=== PATIENT | male | born 1995 | race Asian ===

== ENCOUNTER 2018-12-22 14:57 | Observation (INO) ==
[2018-12-22 15:43] LABS: Basophils # (auto) 0.01 K/uL (0-0.2); Basophils % (auto) 0.2 %; Eosinophils # (auto) 0.05 K/uL (0-0.5); Hematocrit (blood only) 45.8 % (42-52); Hemoglobin 16.3 g/dL (14.0-18.0); Lymphocytes # (auto) 1.52 K/uL (1.2-3.4); Lymphocytes % (auto) 31.1 %; Mean Corpuscular Hgb Conc 35.6 g/dL (32-36); Mean Corpuscular Volume 86.3 fL (80-100); Mean Platelet Volume 9.9 fL (7.4-10.4); Monocytes # (auto) 0.26 K/uL (0.11-0.59); Monocytes % (auto) 5.3 %; Neutrophils # (auto) 3.05 K/uL (1.4-6.5); Neutrophils % (auto) 62.4 %; Platelet Count 164 K/uL (130-400); RDW Standard Deviation 41.3 fL (36.4-46.3); Red Blood Count 5.31 M/uL (4.7-6.1); White Blood Count 4.89 K/uL (4.8-10.8)
[2018-12-22 15:47] LABS: Appearance Urine Clear (Clear); Bilirubin Urine Negative (Negative); Blood Urine Negative (Negative); Color Urine Yellow; Glucose Urine UA Negative (Negative); Ketones Urine Negative (Negative); Leukocyte Esterase Urine Negative (Negative); Nitrite Urine Negative (Negative); Protein Urine Negative (Negative); Specific Gravity Urine 1.042 (1.000-1.030); Urobilinogen Urine Negative (Negative)
[2018-12-22 16:04] LABS: Alanine Aminotransferase 29 U/L (12-78); Albumin Globulin Ratio 1.4 (0.9-2); Albumin Level 4.7 gm/dl (3.4-5.0); Alkaline Phosphatase 66 U/L (45-117); Aspartate Aminotransferase 22 U/L (15-37); BUN Creatinine Ratio 8.9 (10-20); Bilirubin,Total 2.1 mg/dl (0.2-1); Blood Urea Nitrogen 9 mg/dl (7-18); Calcium 8.9 mg/dl (8.5-10.1); Carbon Dioxide 27 mmol/L (21-32); Chloride 103 mmol/L (98-107); Est GFR (African American) 130.4; Est GFR (Non-African American) 112.5; Globulin 3.3 gm/dl (2.5-4.0); Glucose 89 mg/dl (70-99); Potassium 3.6 mmol/L (3.5-5.1); Sodium 138 mmol/L (136-145)
--- NOTE | 2018-12-22 17:06 | Surgery Consultation ---
Date of Consultation December 22, 2018 Assessment & Plan (1) Appendicitis: pt is a 23 year old male who presents to ER with abdominal pain 3 weesk ago, pt had CT scan dx acute appendicitis, IMP: acute appendicitis Plan, I recommend to do laparoscopic appendectomy, possible open, D/W benefits, risks and alternatives of the surgery, the risks - infection, bleeding, injury bowel, abscess, negative for appendicitis, . pt understood, he agrees with the surgery, I answered all questions, History of Present Illness History of Present Illness CC: abdominal pain, HPI: pt is a 23 year old male who present to ER with acute abdominal pain with nausea and vomiting 3 weeks ago, the pain is last about 8 hours, then the abdominal pain is gone, the pain is located at LLQ area, pt is still have some diarrhea with loose stool an anoxia , pt saw GI DR. Souza 2 days ago, pt was schedule colonoscopy next week, pt had CT scan today which was diagnosed acute appendicitis. pt denies fever, no significant abdominal pain now, no dysuria. otherwise pt is health in the past. Allergies Allergy/AdvReac Type Severity Reaction Status Date / Time No Known Allergies Allergy Verified 12/20/18 14:47 Home Medications Home Medications Medication Instructions Recorded Confirmed Type famotidine 20 mg PO BID 12/20/18 12/20/18 History inulin [Fiber Gummies] 2 g PO DAILY 12/20/18 12/20/18 History sucralfate 1 g PO TID 12/20/18 12/20/18 History Patient History Medical History Acid reflux Allergic (intrinsic) eczema Chronic diarrhea Surgical History No history of previous surgery Family History Father No problems noted. Mother No problems noted. Grandmother (Paternal) Family history of diabetes mellitus Social History Preferred Language: Malay Communication Ability: Effective Automatic Winder Operator Required: No Beliefs That Will Affect Care: None Current Living Situation: Significant Other Current Living Situation Comment: LIVES W/ FRIEND current occupation: student at [employer] Feels Safe at Home: Yes Smoking Status: Never smoker Second Hand Exposure: No ; Hx Alcohol Use: No Hx Substance Use: No Review of Systems Review of Systems: All systems reviewed & are unremarkable except as noted in HPI & below Constitutional: as per Subjective / HPI Ear, Nose, Mouth, Throat: as per Subjective / HPI Respiratory: as per Subjective / HPI Cardiovascular: as per Subjective / HPI Gastrointestinal: as per Subjective / HPI, + abdominal pain and + nausea Neurologic: as per Subjective / HPI Psychiatric: as per Subjective / HPI Endocrine: as per Subjective / HPI Hematologic / Lymphatic: as per Subjective / HPI Physical Exam Constitutional: WD/WN, vitals as above well developed and well nourished ENMT: external ear and nose normal, oropharynx normal Neck: trachea midline, no thyromegaly Respiratory: normal respiratory effort, lungs clear to auscultation normal respiratory effort Cardiovascular: RRR, no murmur, no edema Rate/Rhythm: regular rate and regular rhythm Heart Sounds: normal S1 and normal S2 Gastrointestinal (Abdomen): normal bowel sounds, soft, nontender, no hepatosplenomegaly no significant tenderness, no distend, BS+ Musculoskeletal: no cyanosis or clubbing, extremities motor strength 5/5 Neurologic: patellar DTR's 2+ bilat, sensation intact Psychiatric: A+Ox3, euthymic affect Orientation: alert and oriented x 3 Results & Data Vital Signs (Past 12 Hours) Vital Signs Temp Pulse Pulse Resp BP BP Pulse Ox 12/22/18 16:50 79 20 115/77 98 12/22/18 15:10 36.8 C 97 H 20 129/78 95 Laboratory Results Abnormal lab results 12/22/18 12/22/18 Range/Units 15:32 15:33 BUN/Creatinine Ratio 8.9 L (10-20) Total Bilirubin 2.1 H (0.2-1) mg/dl Lipase 69 L (73-393) U/L Ur Specific [place] 1.042 H (1.000-1.030) Diagnostic Findings CT abd pelvis oral and IV con CLINICAL HISTORY: 23 years-old Male presenting with ABD PAIN. TECHNIQUE: Multidetector CT of the abdomen and pelvis was performed after the administration of oral and intravenous contrast. IV contrast: 94 mL of Optiray 320. One or more dose lowering techniques were used consistent with the principles of ALARA (as low as reasonably achievable), including automatic exposure control, mA or kV adjustment to individual patient size, and/or use of iterative reconstruction. COMPARISON: None. CT DOSE (mGy.cm): The estimated cumulative dose is 300.80 mGycm. FINDINGS: Manager Maritime topogram: Unremarkable. Lung bases: Normal heart size. No pericardial or pleural effusion. No focal infiltrate or nodule at the lung bases. Liver: Normal morphology. No liver lesion. Patent hepatic vasculature. Biliary: No intrahepatic or extrahepatic biliary ductal dilatation. Normal gallbladder. Pancreas: Normal. Spleen: Normal. Adrenal glands: Normal. Kidneys and ureters: Normal. No hydronephrosis. Bladder: Normal. Pelvic organs: Prostate and seminal vesicles normal. Bowel: Distended and unopacified appendix with mucosal hyperemia. The appendiceal diameter measures up to 10 mm. No periappendiceal fat infiltration or adjacent fluid or fluid collection. No bowel obstruction. Peritoneal cavity: No free fluid or intraperitoneal gas. Lymph nodes: No enlarged lymph nodes in the abdomen or pelvis. Vasculature: Aorta and IVC patent and normal in caliber. Abdominal wall: Normal. Musculoskeletal: Normal. IMPRESSION: 1. Acute uncomplicated appendicitis. Surgical consultation is necessary. The report will be called/faxed according to standard departmental protocol for a critical finding.
--- NOTE | 2018-12-22 17:07 | Anesthesiology Consultation ---
Date of Service December 22, 2018 Assessment & Plan (1) Encounter for pre-operative examination: Chart Review Chart Review: Acceptable Risk for Surgery and Patient NOT seen in Pre Admission Testing Consults Requested none ASA ASA2 Proposed Anesthesia Anesthesia Type: General Risk / Benefits Reviewed With: PT / POA / Parent / Guardian, Accepts Plan and Informed Consent Obtained History Surgery Operation Date: 12/22/18 17:30 Proposed Procedures p Laparoscopic Appendectomy - Iban Sales MD Height/Weight Height: 6 ft 0.44 in Weight: 61.9 kg Allergies Allergy/AdvReac Type Severity Reaction Status Date / Time No Known Allergies Allergy Verified 12/22/18 17:26 Medications Home Medications Medication Instructions Recorded Confirmed Last Taken famotidine 20 mg PO BID 12/20/18 12/22/18 Unknown inulin [Fiber Gummies] 2 g PO DAILY 12/20/18 12/22/18 Unknown sucralfate 1 g PO TID 12/20/18 12/22/18 Unknown NPO Date Last Intake of Fluids: 12/22/18 Time Last Intake of Fluids: 14:00 Date Last Intake of Solids: 12/22/18 Time Last Intake of Solids: 10:00 Past Medical History Medical History Appendicitis (Acute) Acid reflux Allergic (intrinsic) eczema Chronic diarrhea Exercise / Class Metabolic Activity II 4-5 Yardwork/Stairs/Walk up hill Past Family History Family History Father No problems noted. Mother No problems noted. Grandmother (Paternal) Family history of diabetes mellitus Past Surgical History Surgical History No history of previous surgery Past Anesthesia History No Family Hx of Anesthesia Complications no prior surgical history History of PONV Hx of Motion Sickness Social History Smoking Status: Never smoker Hx Alcohol Use: No Hx Substance Use: No substance use type: does not use Review of Systems Negative for chest pain or shortness of breath. Patient denies active symptoms of GERD. Physical Exam Vital Signs Last Vital Signs Temp 36.8 C 12/22/18 15:10 Pulse 79 12/22/18 16:50 Resp 20 12/22/18 16:50 BP 115/77 12/22/18 16:50 Pulse Ox 98 12/22/18 16:50 Constitutional not obese ENMT Mouth: no TMJ abnormality and oral opening not small Thyromental Distance: > or= 3.5 Finger Breadths Mallampati Class: II Neck normal visual inspection; neck extension not limited Respiratory normal respiratory effort Auscultation: lungs clear to auscultation bilaterally Cardiovascular Rate/Rhythm: regular rate and regular rhythm Heart Sounds: + murmur Neurologic moves all extremities Motor/Sensory: no sensory deficit Psychiatric Orientation: alert and oriented x 3 Testing Laboratory Results 12/22/18 15:32 12/22/18 15:32 Urine Color Yellow 12/22/18 15:33 Urine Appearance Clear (Clear) 12/22/18 15:33 Urine pH 7.0 (4.5-7.5) 12/22/18 15:33 Ur Specific [place] 1.042 (1.000-1.030) H 12/22/18 15:33 Urine Protein Negative (Negative) 12/22/18 15:33 Urine Glucose (UA) Negative (Negative) 12/22/18 15:33 Urine Ketones Negative (Negative) 12/22/18 15:33 Urine Nitrite Negative (Negative) 12/22/18 15:33 Ur Leukocyte Esterase Negative (Negative) 12/22/18 15:33
[2018-12-22] MEDS ORDERED: cefOXitin 2,000 MG/60 ML BAG IV STA ×2 (17:13→18:37)
[2018-12-22] MEDS ORDERED: LIDOCAINE HCL 2% 2 ML VIAL/AMP(20MG/ML) INFIL ONE (17:23)
[2018-12-22] MEDS ORDERED: ONDANSETRON INJ 2 MG/ML 2 ML VIAL ONE (17:23)
[2018-12-22] MEDS ORDERED: ROCURONIUM BROMIDE 10 MG/ML 5 ML VIAL ONE (17:23)
[2018-12-22] MEDS ORDERED: PROPOFOL IV EMULSION 10 MG/ML 20 ML VIAL IV ONE (17:23)
[2018-12-22] MEDS ORDERED: SUCCINYLCHOLINE CHLORIDE 20 MG/ML 10 ML VIAL ONE (17:23)
[2018-12-22] MEDS ORDERED: DEXAMETHASONE SOD INJ 4 MG/ML VIAL ONE (17:23)
[2018-12-22] MEDS ORDERED: BUPIVACAINE 0.5 % 5 MG/1 ML MPF 30ML VIAL ONE (17:47)
[2018-12-22] MEDS ORDERED: LIDOCAINE HCL 1% 20 ML VIAL ONE (17:48)
[2018-12-22] MEDS ORDERED: BACITRACIN OINT 15 GM TUBE ONE (17:48)
[2018-12-22] MEDS ORDERED: fentaNYL citrate 100 MCG/2 ML VIAL ONE ×2 (17:50→18:30)
[2018-12-22] MEDS ORDERED: MIDAZOLAM HCL 1 MG/ML 2ML VIAL ONE (17:50)
--- NOTE | 2018-12-22 17:54 | Emergency Department Note ---
Entered by Leida Hahn acting as a scribe for History of Present Illness General Chief complaint: Abnormal Labs/Diagnostic Testing Stated complaint: ABD PAIN,ABNORMAL CT Source: patient Mode of arrival: ambulatory Limitations: no limitations History of Present Illness Onset (ago): week(s) 3 Location: abdomen (LLQ) Radiation: non-radiation Pain Consistency: + now resolved Maximum Pain Intensity: 0 Relieved By: + none Exacerbated By: + none Associated symptoms: + loss of appetite Treatments prior to arrival: none The patient is a 23 year old male w/ a limited PMHx who presents to the ED w/ CC of RLQ abdominal pain. He states he experienced abdominal pain approximately 3 weeks ago, but it went away shortly after developing. He reports last week he experienced a loss of appetite, so he saw his doctor, who referred him to the ED for a CT scan. His last BM was this morning and normal. He has never undergone abdominal surgery in the past. He notes that now he has no pain but still has a decreased appetite. No chest pain shortness of breath nausea vomiting or diarrhea. No dysuria urgency or frequency. Home Medications Home Medications Medication Instructions Recorded Confirmed Type famotidine 20 mg PO BID 12/20/18 12/22/18 History inulin [Fiber Gummies] 2 g PO DAILY 12/20/18 12/22/18 History sucralfate 1 g PO TID 12/20/18 12/22/18 History Allergies Allergy/AdvReac Type Severity Reaction Status Date / Time No Known Allergies Allergy Verified 12/22/18 17:26 Past Med/Surg History Medical History Acid reflux Allergic (intrinsic) eczema Chronic diarrhea Surgical History No history of previous surgery Family History Father No problems noted. Mother No problems noted. Grandmother (Paternal) Family history of diabetes mellitus Social History Preferred Language: Indian Communication Ability: Effective Answerer Required: No Beliefs That Will Affect Care: None Current Living Situation: Significant Other Current Living Situation Comment: LIVES W/ FRIEND current occupation: student at [employer] Feels Safe at Home: Yes Smoking Status: Never smoker Second Hand Exposure: No ; Hx Alcohol Use: No Hx Substance Use: No Review of Systems See HPI for pertinent positives & negatives. and A total of 10 systems reviewed and were otherwise negative Physical Exam Vital Signs Vital Signs - 24 hr 12/22/18 15:10 12/22/18 16:50 Temperature 36.8 C Temperature Source Oral Sepsis Recent Fever Within 48 Hours No Sepsis Action Taken by Nursing No Action Required Pulse Rate 97 H Pulse Rate [Right Finger] 79 Respiratory Rate 20 20 Respiratory Effort / Characteristics Non-Labored Respiratory Depth Normal Blood Pressure 129/78 Blood Pressure [Right Arm] 115/77 Blood Pressure Mean 95 Blood Pressure Mean [Right Arm] 89 Pulse Oximetry 95 98 Oxygen Delivery Method Room Air GENERAL: Patient is sitting up in bed, alert, skinny, no distress, non-toxic EYE EXAM: normal conjunctiva OROPHARYNX: no exudate, no erythema, lips, buccal mucosa, and tongue normal and mucous membranes are moist NECK: supple, no nuchal rigidity, no adenopathy, non-tender LUNGS: Clear to auscultation. Normal chest wall mechanics HEART: no murmurs, S1 normal and S2 normal ABDOMEN: abdomen soft, non-tender, normo-active bowel sounds, no masses, no rebound or guarding. BACK: Back is symmetrical on inspection and there is no deformity, no midline tenderness, no CVA tenderness. SKIN: no rashes and no bruising UPPER EXTREMITIES: upper extremities are grossly normal. LOWER EXTREMITIES: No pitting edema. NEURO EXAM: Normal sensorium, cranial nerves II-XII grossly intact, normal speech, no gross weakness of arms, no gross weakness of legs. Gross sensation intact. Course ED COURSE: Vital signs were reviewed and showed the patient is tachycardic. The patients medical record was reviewed The above diagnostic studies were performed and reviewed. ED treatments and interventions as stated above. 1516: The patient was evaluated in room B11. A complete history and physical examination was performed. 1525: I discussed the patients case with DOROTHEA Arriola, General Surgery. The patient will be further evaluated. He is agreeable with the treatment plan. 1647: Dr. Sales, General Surgery, informed me the patient will be further evaluated by surgery. Based on the patients age, coexisting illnesses, exam and lab findings the decision to treat as an inpatient was made. The patient remained stable while under my care. The patient will be evaluated for further management. Medical Decision Making Differential Diagnosis Differential diagnoses includes but is not limited to gastritis, peptic ulcer disease, GERD, gallbladder disease, pancreatitis, small bowel obstruction, acute coronary syndrome, pericarditis, ischemic bowel, irritable bowel disease, irritable bowel syndrome, appendicitis, diverticulitis, malignancy, hernia, urinary tract infection, torsion, perforation, trauma, infectious. Medical Records Attestation: I reviewed the patient's medical records. Home Medications Current Medication List: was personally reviewed by me Laboratory Data Attestation: I reviewed the patient's lab results. Result diagrams: 12/22/18 15:32 12/22/18 15:32 Lab Results 12/22/18 12/22/18 12/22/18 Range/Units 15:32 15:32 15:33 WBC 4.89 (4.8-10.8) K/uL RBC 5.31 (4.7-6.1) M/uL Hgb 16.3 (14.0-18.0) g/dL Hct 45.8 (42-52) % MCV 86.3 (80-100) fL MCH 30.7 (25-34) pg MCHC 35.6 (32-36) g/dL RDW Std Deviation 41.3 (36.4-46.3) fL RDW Coeff of Mark 13.0 (11.5-14.5) % Plt Count 164 (130-400) K/uL MPV 9.9 (7.4-10.4) fL Immature Gran % (Auto) 0.0 % Neut % (Auto) 62.4 % Lymph % (Auto) 31.1 % [place] % (Auto) 5.3 % Eos % (Auto) 1.0 % Baso % (Auto) 0.2 % Immature Gran # (Auto) 0.00 (0.00-0.02) K/uL Neut # (Auto) 3.05 (1.4-6.5) K/uL Lymph # (Auto) 1.52 (1.2-3.4) K/uL [place] # (Auto) 0.26 (0.11-0.59) K/uL Eos # (Auto) 0.05 (0-0.5) K/uL Baso # (Auto) 0.01 (0-0.2) K/uL Sodium 138 (136-145) mmol/L Potassium 3.6 (3.5-5.1) mmol/L Chloride 103 (98-107) mmol/L Carbon Dioxide 27 (21-32) mmol/L Anion Gap 8.0 (3-11) BUN 9 (7-18) mg/dl Creatinine 0.96 (0.6-1.4) mg/dl Est Cr Clr Drug Dosing Not Reportable Est GFR ( Amer) 130.4 Est GFR (Non-Af Amer) 112.5 BUN/Creatinine Ratio 8.9 L (10-20) Glucose 89 (70-99) mg/dl Calcium 8.9 (8.5-10.1) mg/dl Total Bilirubin 2.1 H (0.2-1) mg/dl AST 22 (15-37) U/L ALT 29 (12-78) U/L Alkaline Phosphatase 66 (45-117) U/L Total Protein 8.0 (6.4-8.2) gm/dl Albumin 4.7 (3.4-5.0) gm/dl Globulin 3.3 (2.5-4.0) gm/dl Albumin/Globulin Ratio 1.4 (0.9-2) Lipase 69 L (73-393) U/L Specimen Hemolysis Urine Color Yellow Urine Appearance Clear (Clear) Urine pH 7.0 (4.5-7.5) Ur Specific [place] 1.042 H (1.000-1.030) Urine Protein Negative (Negative) Urine Glucose (UA) Negative (Negative) Urine Ketones Negative (Negative) Urine Blood Negative (Negative) Urine Nitrite Negative (Negative) Urine Bilirubin Negative (Negative) Urine Urobilinogen Negative (Negative) Ur Leukocyte Esterase Negative (Negative) Blood Pressure Blood Pressure Findings: Normal blood pressure Blood Pressure Disposition: did not require urgent referral MDM Narrative Patient is a 23-year-old male who was sent in by PCP following having a CT done on as he had abdominal pain about 2 to 3 weeks ago and has not wanted to eat since then. CT showed acute appendicitis. Vitals are stable. Patient has a fairly benign exam. Labs were obtained and shows no significant leukocytosis or anemia. BMP along with LFTs bilirubin lipase was unremarkable. UA was negative. CT read was reviewed. Discussed with general surgery and update the patient at bedside. Patient will go to the OR for acute appendicitis for evaluation by general surgery. Impression & Plan Appendicitis, Elevated bilirubin Discharge Plan Visit Data Chief Complaint: Abnormal Labs/Diagnostic Testing Stated Complaint: ABD PAIN,ABNORMAL CT ED Provider: Jose Daniel Porter Discharge Problem: Appendicitis, Elevated bilirubin Patient Disposition: Being Evaluated by Surgeon Forms Stand Alone Forms: My [facility] Prescriptions Prescriptions: No Action sucralfate 1 gram Tablet 1 g PO TID RF: 0 famotidine 20 mg Tablet 20 mg PO BID RF: 0 Fiber Gummies 2 gram Tablet,Chewable 2 g PO DAILY RF: 0 Referrals Referrals: Yanet Mcgee MD [Primary Care Provider] - The scribe's documentation has been prepared under my direction and personally reviewed by me in its entirety. I confirm that the note above accurately reflects all work, treatment, procedures, and medical decision making performed by me.
[2018-12-22] MEDS ORDERED: HYDROmorphone INJ 1 MG/ML SYRINGE IV PRN (18:09)
[2018-12-22] MEDS ORDERED: PROMETHAZINE HCL 12.5 MG in SODIUM CHLORIDE 0.9% 50 ML IV PRN (18:09)
[2018-12-22] MEDS ORDERED: fentaNYL citrate 100 MCG/2 ML VIAL IV PRN (18:09)
[2018-12-22] MEDS ORDERED: ONDANSETRON INJ 2 MG/ML 2 ML VIAL IV PRN (18:09)
[2018-12-22] MEDS ORDERED: ePHEDrine sulfate 50 MG/ML AMP IV PRN (18:09)
[2018-12-22] MEDS ORDERED: ATROPINE SULFATE 0.1 MG/ML 10ML SYR IV PRN (18:09)
[2018-12-22] MEDS ORDERED: HYDROmorphone INJ 0.5 MG/0.5 ML SYR IV PRN (18:17)
[2018-12-22] MEDS ORDERED: GLYCOPYRROLATE 0.2 MG/ML VIAL ONE (18:54)
[2018-12-22] MEDS ORDERED: NEOSTIGMINE METHYLSULFATE 5 MG/5 ML SYR ONE (18:54)
[2018-12-22] MEDS ORDERED: KETOROLAC 30 MG/ML VIAL ONE (18:54)
--- NOTE | 2018-12-22 19:01 | Post Operative Brief Note ---
Immediate Post Op Note v1 Date of Surgery December 22, 2018 Pre & Post Diagnosis Operation Date: 12/22/18 17:30 Pre-Op Diagnosis: Acute Appendicitis Post-Op Diagnosis: Acute Appendicitis Procedure Operation Date: 12/22/18 17:30 Actual Procedures p Laparoscopic Appendectomy(Not Applicable) - Iban Sales MD Surgeon Iban Sales MD Liability Claims Adjuster surgical pathologist Estimated Blood Loss 5 Findings Consistent with Post-Op Diagnosis Fluids 700ml Specimens appendix Anesthesia Type General Complications none Disposition Accompanied Patient To Recovery: Yes Disposition: Recovery Room Overlapping Procedure I was immediately available: during the entire case.
[2018-12-22] MEDS ORDERED: MEPERIDINE HCL 25 MG/ML CARP IV PRN (19:35)
[2018-12-22] MEDS ORDERED: MEPERIDINE HCL 25 MG/ML CARP ONE (19:40)
--- NOTE | 2018-12-22 19:52 | Anesthesiology Progress Note ---
Date of Service December 22, 2018 Anesthesia Post Procedure Vital Signs Vital Signs: Temp Pulse Pulse Pulse Resp BP BP 12/22/18 19:50 37 C 78 15 125/79 12/22/18 19:40 82 16 116/82 12/22/18 19:30 87 16 128/76 12/22/18 19:23 36.8 C 67 16 111/77 12/22/18 16:50 79 20 12/22/18 15:10 36.8 C 97 H 20 129/78 BP Pulse Ox 12/22/18 19:50 97 12/22/18 19:40 99 12/22/18 19:30 100 12/22/18 19:23 100 12/22/18 16:50 115/77 98 12/22/18 15:10 95 Pain Intensity Abdomen: Pain Intensity: 1 Transfer of Care Handoff Completed per policy Notes Mental Status: alert / awake / arousable and participated in evaluation Patient Amnestic to Procedure: Yes Nausea / Vomiting: adequately controlled Pain: adequately controlled Airway Patency, RR, SpO2: stable & adequate BP & HR: stable & adequate Hydration State: stable & adequate Anesthetic Complications: no major complications apparent and Pt Satisfied with anesthetic care
[2018-12-22] MEDS: LACTATED RINGER'S 1,000 ML IV SCH (21:03)
[2018-12-22] MEDS: FAMOTIDINE 20 MG TAB PO SCH (21:32)
[2018-12-22] MEDS: SUCRALFATE 1 GM TAB PO SCH (21:32)
[2018-12-22] MEDS: ONDANSETRON INJ 2 MG/ML 2 ML VIAL IV PRN (21:37)
--- NOTE | 2018-12-22 23:58 | Operative Report ---
DATE OF OPERATION: 12/22/2018 PREOPERATIVE DIAGNOSIS: Acute appendicitis. POSTOPERATIVE DIAGNOSIS: Acute appendicitis. PROCEDURE: Laparoscopic appendectomy. SURGEON: Iban Sales MD ANESTHESIA: General. ESTIMATED BLOOD LOSS: About 5 mL. FINDINGS: Acute appendicitis. COMPLICATIONS: None. INDICATIONS FOR THE PROCEDURE: This is a 23-year-old gentleman who had abdominal pain about 3 weeks ago. Patient had a CT scan done today, diagnosis of acute appendicitis. Recommended to do laparoscopic appendectomy, possible open. I did talk to the patient about the benefits, the risks, and alternate procedures. I indicated the risks may include, but not limited, such as bleeding, infection, abscess, injury to the bowel, even . The patient understands. He signed informed consent and I answered all questions. DETAILS OF PROCEDURE: We brought the patient into the OR, put the patient in the supine position. The patient received SCDs on bilateral legs to prevent DVT. Also patient received 2 g of cefoxitin IV for prophylactic antibiotic. The patient received general anesthesia without difficulty. The abdomen was prepped and draped in routine sterile fashion. After time-out, I injected local anesthesia by using 1% lidocaine mixed with 0.5% Marcaine just above umbilicus. Then I made a small incision just above umbilicus, opened fascia and opened peritoneum under direct vision, put a Leandra trocar in, connected to CO2 to create pneumoperitoneum. Flow rate is 6 liter per minute. Pressure not more than 14 mmHg. Once we got a nice pneumoperitoneum, we put a camera in, looked around the abdomen. It shows normal finding on the small bowel, large bowel, liver; however, the appendix shows to be significantly enlarged with edema and inflammation, confirmed diagnosis of acute appendicitis. Then we put another two 5-mm trocars on the left lower quadrant area. Once all trocars in, we used a grasper to hold the appendix and take down the appendix by the harmonic, rechecked, no active bleeding. Then we used a 45 mm Endo-RAFA stapler for transection of appendix on the base of the appendix, rechecked the staple line, intact, no leak. Then we removed the appendix through the catch bag. Then we reinserted Leandra trocar in, connected to CO2 to create pneumoperitoneum. Again looked around the abdomen, no active bleeding, no leak from the staple line. Then we removed all trocar under direct vision. No active bleeding from the trocar site. Pneumoperitoneum was released, closed the umbilical incision, fascial layer by using #1 Vicryl [id number] x2, closed subcutaneous layer by using 2-0 Vicryl interruptedly, closed skin by using 4-0 Vicryl continuous running, closed another two 5-mm trocar sites skin only by using 4-0 Vicryl. Then we put the dressing on. The patient tolerated the procedure well. All instrument, needle, and sponge count were correct x2 at the end of the case. The patient transferred to recovery room in stable condition. Specimen sent to pathology. I attest to the content of the Intraoperative Record and any orders documented therein. Any exceptions are noted below. RONNAD
[2018-12-23] MEDS: ONDANSETRON INJ 2 MG/ML 2 ML VIAL IV PRN (03:54)
[2018-12-23 07:21] LABS: Hematocrit (blood only) 38.8 % (42-52); Hemoglobin 13.8 g/dL (14.0-18.0); Mean Corpuscular Hgb Conc 35.6 g/dL (32-36); Mean Corpuscular Volume 85.5 fL (80-100); Mean Platelet Volume 9.3 fL (7.4-10.4); Platelet Count 188 K/uL (130-400); RDW Standard Deviation 40.7 fL (36.4-46.3); Red Blood Count 4.54 M/uL (4.7-6.1); White Blood Count 10.21 K/uL (4.8-10.8)
[2018-12-23 07:54] LABS: Albumin Level 3.6 gm/dl (3.4-5.0); BUN Creatinine Ratio 7.9 (10-20); Calcium 8.4 mg/dl (8.5-10.1); Creatinine Clr Calc Pharmacy 93.9 ml/min; Est GFR (African American) 111.9; Est GFR (Non-African American) 96.5; Potassium 3.7 mmol/L (3.5-5.1)
[2018-12-23] MEDS: LACTATED RINGER'S 1,000 ML IV SCH ×2 (08:08→22:12)
[2018-12-23] MEDS: FAMOTIDINE 20 MG TAB PO SCH ×2 (08:09→21:31)
[2018-12-23] MEDS: SUCRALFATE 1 GM TAB PO SCH ×3 (08:09→21:30)
[2018-12-23] MEDS: CALCIUM POLYCARBOPHIL 625MG TAB PO SCH (08:09)
[2018-12-23 08:11] LABS: Albumin Globulin Ratio 1.4 (0.9-2); Bilirubin,Total 2.4 mg/dl (0.2-1); Globulin 2.6 gm/dl (2.5-4.0); Total Protein 6.2 gm/dl (6.4-8.2)
[2018-12-23] MEDS ORDERED: ACETAMINOPHEN 325 MG TAB PO PRN (12:24)
--- NOTE | 2018-12-23 12:28 | Surgery Progress Note ---
Date of Service December 23, 2018 Assessment & Plan (1) Appendicitis: POD # 1 s/p laparoscopic appendectomy -vitals stable, afebrile - post op pain mild, controlled - mild nausea - adequate urine output Plan: encouraged to ask for oral pain medication if needed ambulate hallways diet advanced to regular diet if does okay for lunch can discharge home this afternoon discharge instructions reviewed f/u surgical office in [address] Sales has seen patient, agrees with above Subjective mild nausea, medication helped tenderness at incision sites no vomiting low appetite, tolerated clear liquids last night, has not ate much this morning no chest pain/sob Physical Exam Constitutional: WD/WN, vitals as above no acute distress Respiratory: normal respiratory effort; no respiratory distress and no labored breathing Gastrointestinal (Abdomen): Inspection/Auscultation: abdomen normal to inspection; abdomen not distended Percussion/Palpation: + abdomen tender (at incision sites) and abdomen soft; no guarding and abdomen not rigid Skin: no rashes, warm and dry + incision (covered with dressings, mild spotting, dry) Psychiatric: A+Ox3, euthymic affect Results & Data Vital Signs (Past 12 Hours) Vital Signs Temp Pulse Resp BP Pulse Ox 12/23/18 10:47 36.9 C 66 18 103/63 97 12/23/18 07:33 36.8 C 66 18 94/50 L 97 12/23/18 03:39 36.5 C 97 H 17 99/54 L 96 Laboratory Results 12/23/18 12/23/18 12/22/18 Range/Units 07:03 07:03 15:33 WBC 10.21 (4.8-10.8) K/uL RBC 4.54 L (4.7-6.1) M/uL Hgb 13.8 L (14.0-18.0) g/dL Hct 38.8 L (42-52) % MCV 85.5 (80-100) fL MCH 30.4 (25-34) pg MCHC 35.6 (32-36) g/dL RDW Std Deviation 40.7 (36.4-46.3) fL RDW Coeff of Mark 13.0 (11.5-14.5) % Plt Count 188 (130-400) K/uL MPV 9.3 (7.4-10.4) fL Immature Gran % (Auto) % Neut % (Auto) % Lymph % (Auto) % [place] % (Auto) % Eos % (Auto) % Baso % (Auto) % Immature Gran # (Auto) (0.00-0.02) K/uL Neut # (Auto) (1.4-6.5) K/uL Lymph # (Auto) (1.2-3.4) K/uL [place] # (Auto) (0.11-0.59) K/uL Eos # (Auto) (0-0.5) K/uL Baso # (Auto) (0-0.2) K/uL Sodium 140 (136-145) mmol/L Potassium 3.7 (3.5-5.1) mmol/L Chloride 106 (98-107) mmol/L Carbon Dioxide 28 (21-32) mmol/L Anion Gap 6.0 (3-11) BUN 9 (7-18) mg/dl Creatinine 1.09 (0.6-1.4) mg/dl Est Cr Clr Drug Dosing 93.9 Est GFR ( Amer) 111.9 Est GFR (Non-Af Amer) 96.5 BUN/Creatinine Ratio 7.9 L (10-20) Glucose 97 (70-99) mg/dl Calcium 8.4 L (8.5-10.1) mg/dl Total Bilirubin 2.4 H (0.2-1) mg/dl AST 9 L (15-37) U/L ALT 20 (12-78) U/L Alkaline Phosphatase 54 (45-117) U/L Total Protein 6.2 L D (6.4-8.2) gm/dl Albumin 3.6 (3.4-5.0) gm/dl Globulin 2.6 (2.5-4.0) gm/dl Albumin/Globulin Ratio 1.4 (0.9-2) Lipase (73-393) U/L Specimen Hemolysis Urine Color Yellow Urine Appearance Clear (Clear) Urine pH 7.0 (4.5-7.5) Ur Specific [place] 1.042 H (1.000-1.030) Urine Protein Negative (Negative) Urine Glucose (UA) Negative (Negative) Urine Ketones Negative (Negative) Urine Blood Negative (Negative) Urine Nitrite Negative (Negative) Urine Bilirubin Negative (Negative) Urine Urobilinogen Negative (Negative) Ur Leukocyte Esterase Negative (Negative) 12/22/18 12/22/18 Range/Units 15:32 15:32 WBC 4.89 (4.8-10.8) K/uL RBC 5.31 (4.7-6.1) M/uL Hgb 16.3 (14.0-18.0) g/dL Hct 45.8 (42-52) % MCV 86.3 (80-100) fL MCH 30.7 (25-34) pg MCHC 35.6 (32-36) g/dL RDW Std Deviation 41.3 (36.4-46.3) fL RDW Coeff of Mark 13.0 (11.5-14.5) % Plt Count 164 (130-400) K/uL MPV 9.9 (7.4-10.4) fL Immature Gran % (Auto) 0.0 % Neut % (Auto) 62.4 % Lymph % (Auto) 31.1 % [place] % (Auto) 5.3 % Eos % (Auto) 1.0 % Baso % (Auto) 0.2 % Immature Gran # (Auto) 0.00 (0.00-0.02) K/uL Neut # (Auto) 3.05 (1.4-6.5) K/uL Lymph # (Auto) 1.52 (1.2-3.4) K/uL [place] # (Auto) 0.26 (0.11-0.59) K/uL Eos # (Auto) 0.05 (0-0.5) K/uL Baso # (Auto) 0.01 (0-0.2) K/uL Sodium 138 (136-145) mmol/L Potassium 3.6 (3.5-5.1) mmol/L Chloride 103 (98-107) mmol/L Carbon Dioxide 27 (21-32) mmol/L Anion Gap 8.0 (3-11) BUN 9 (7-18) mg/dl Creatinine 0.96 (0.6-1.4) mg/dl Est Cr Clr Drug Dosing Not Reportable Est GFR ( Amer) 130.4 Est GFR (Non-Af Amer) 112.5 BUN/Creatinine Ratio 8.9 L (10-20) Glucose 89 (70-99) mg/dl Calcium 8.9 (8.5-10.1) mg/dl Total Bilirubin 2.1 H (0.2-1) mg/dl AST 22 (15-37) U/L ALT 29 (12-78) U/L Alkaline Phosphatase 66 (45-117) U/L Total Protein 8.0 (6.4-8.2) gm/dl Albumin 4.7 (3.4-5.0) gm/dl Globulin 3.3 (2.5-4.0) gm/dl Albumin/Globulin Ratio 1.4 (0.9-2) Lipase 69 L (73-393) U/L Specimen Hemolysis Urine Color Urine Appearance (Clear) Urine pH (4.5-7.5) Ur Specific [place] (1.000-1.030) Urine Protein (Negative) Urine Glucose (UA) (Negative) Urine Ketones (Negative) Urine Blood (Negative) Urine Nitrite (Negative) Urine Bilirubin (Negative) Urine Urobilinogen (Negative) Ur Leukocyte Esterase (Negative) (1) Appendicitis Acute appendicitis type: unspecified acute appendicitis type Appendicitis type: acute appendicitis Qualified Code(s): K35.80 - Unspecified acute appendicitis
[2018-12-23] MEDS: OXYCODONE/ACETAMINOPHEN 5mg/325mg TAB PO PRN ×2 (13:41→21:37)
[2018-12-24] MEDS: FAMOTIDINE 20 MG TAB PO SCH (08:47)
[2018-12-24] MEDS: CALCIUM POLYCARBOPHIL 625MG TAB PO SCH (08:47)
[2018-12-24] MEDS: SUCRALFATE 1 GM TAB PO SCH (08:47)
--- NOTE | 2018-12-24 11:18 | Surgery Progress Note ---
Date of Service pt is doing better, he tolerated diet, no nausea, no vomiting, no fever, December 24, 2018 Assessment & Plan (1) Appendicitis: POD # 1 s/p laparoscopic appendectomy -vitals stable, afebrile - post op pain mild, controlled - mild nausea - adequate urine output Plan: encouraged to ask for oral pain medication if needed ambulate hallways diet advanced to regular diet if does okay for lunch can discharge home this afternoon discharge instructions reviewed f/u surgical office in [address] Sales has seen patient, agrees with above 12/24/2018 11:17am, discharge home today, the post-op care instruction was given, f/u me in 1 week, [phone], Physical Exam Constitutional: WD/WN, vitals as above well developed and well nourished ENMT: external ear and nose normal, oropharynx normal Neck: trachea midline, no thyromegaly Respiratory: normal respiratory effort, lungs clear to auscultation normal respiratory effort Cardiovascular: RRR, no murmur, no edema Rate/Rhythm: regular rate and regular rhythm Heart Sounds: normal S1 and normal S2 Gastrointestinal (Abdomen): normal bowel sounds, soft, nontender, no hepatosplenomegaly Musculoskeletal: no cyanosis or clubbing, extremities motor strength 5/5 Neurologic: patellar DTR's 2+ bilat, sensation intact Psychiatric: A+Ox3, euthymic affect Orientation: alert and oriented x 3 Results & Data Vital Signs (Past 12 Hours) Vital Signs Temp Pulse Resp BP Pulse Ox 12/24/18 07:59 37.0 C 44 L 20 94/56 L 95 (1) Appendicitis Acute appendicitis type: unspecified acute appendicitis type Appendicitis type: acute appendicitis Qualified Code(s): K35.80 - Unspecified acute appendicitis
--- NOTE | 2018-12-25 02:42 | Discharge Summary ---
ADMITTING DIAGNOSIS: Acute appendicitis. DISCHARGE DIAGNOSIS: Acute appendicitis. OPERATION: Laparoscopic appendectomy. SURGEON: Iban Sales M.D. DETAILS OF DISCHARGE SUMMARY: This is a 23-year-old gentleman who presented to ED with abdominal pain. The patient had a CT scan diagnosis of acute appendicitis. We took the patient to the OR. We did laparoscopic appendectomy. The patient tolerated the procedure well. After procedure, the patient transferred to regular floor. The patient is doing fine. PHYSICAL EXAMINATION: VITAL SIGNS: Temperature is 37, heart rate is 44, blood pressure 94/56, O2 saturation 95% on room air. GENERAL: The patient is alert, awake, oriented x3. HEENT: With normal limitation. NEUROLOGIC: Intact. NECK: No JVD. CHEST: Bilateral lung sounds clear. HEART: Normal S1, S2. No murmur. ABDOMEN: Soft, no significant tenderness, no distention. All dressing intact. No drainage, no redness of incision site. EXTREMITIES: No edema. PLAN: The patient wants to go home. We gave the patient postop care instruction. The patient understands and I will follow up the patient in 1 week in my office.
== END 2018-12-24 12:24 | disposition home or self-care (01) ==
LOC: ED 14:57 → 3N 17:57 → ASU 17:57